=== PATIENT | female | born 1940 | race Caucasian/White ===

== ENCOUNTER 2021-10-28 20:08 | Inpatient (IN) | payer MEDICARE, OTHER ==
[~2021-10-28] VITALS: Ht 162.6 cm; Wt 72.3 kg
--- NOTE | 2021-10-28 20:20 | NUR ---
pt from group home brought in by [facility]. pt has c/o fever, pt's daughter is at bedside. Per pt's daughter pt is cognitivly impaired.
[2021-10-28] MEDS ORDERED: PIPERACILLIN SODIUM/TAZOBACTAM 3.375 G in IV DEXTROSE 5% 50 ML IV ONE (20:30)
[2021-10-28] MEDS ORDERED: VANCOMYCIN IV 1,000 MG in IV DEXTROSE 5% 250 ML IV ONE (20:30)
[2021-10-28] MEDS ORDERED: VANCOMYCIN IV 200 ML ONE (20:51)
[2021-10-28] MEDS ORDERED: PIPERACILLIN/TAZOBACTAM/D5W 50 ML IV ONE (20:51)
[2021-10-28] MEDS ORDERED: DULO20CA PO (20:53)
[2021-10-28] MEDS ORDERED: CALC3.8S BNOSTRILS (20:53)
[2021-10-28] MEDS ORDERED: SENN-175 PO (20:53)
[2021-10-28] MEDS ORDERED: DOCU50LI PO (20:53)
[2021-10-28] MEDS ORDERED: POTA-194 PO (20:53)
[2021-10-28] MEDS ORDERED: DONE5TAB34 PO (20:53)
[2021-10-28] MEDS ORDERED: MULT-594 PO (20:53)
[2021-10-28] MEDS ORDERED: DIVA125T2 PO (20:53)
[2021-10-28] MEDS ORDERED: FURO-151 PO (20:53)
[2021-10-28] MEDS ORDERED: DEXT1DRO6 EACHEYE (20:53)
[2021-10-28] MEDS ORDERED: LEVO100T10 PO (20:53)
[2021-10-28] MEDS ORDERED: CYAN-51 PO (20:53)
[2021-10-28] MEDS ORDERED: ACET-2154 PO (20:53)
[2021-10-28] MEDS ORDERED: SIMV10TA98 PO (20:53)
[2021-10-28 21:19] LABS: CARBON DIOXIDE 37 mmol/L (21-32); CHLORIDE 104 mmol/L (98-107); CREATININE 0.8 mg/dL (0.6-1.3); GLUCOSE 114 mg/dL (74-106); HEMATOCRIT 39.2 % (31.2-41.9); MEAN CORPUSCULAR HEMOGLOBIN 31.9 uug (24.7-32.8); MEAN CORPUSCULAR VOLUME 96.4 fL (75.5-95.3); PLATELET COUNT (AUTO) 289 K/uL (179-408); POTASSIUM 4.6 mmol/L (3.5-5.1); UREA NITROGEN, BLOOD 22 mg/dL (7-18)
--- NOTE | 2021-10-28 21:23 | NUR ---
IV 20 GUAGE WAS PLACED TO LEFT POSTERIOR FA AFTER MULTIPLE ATTEMPTS, IV PLACED BY DERICK ECHEVERRIA. DR. DELGADILLO AT BEDSIDE SPEAKING WITH FAMILY REGARDING NEED FOR MIDLINE/PICC LINE.
[2021-10-28 21:31] LABS: ALANINE AMINOTRANSFERASE 24 U/L (14-59); ALKALINE PHOSPHATASE 62 U/L (50-136); ASPARTATE AMINOTRANSFERASE 25 U/L (15-37); BILIRUBIN,DIRECT 0.1 mg/dL (0.0-0.2); BILIRUBIN,TOTAL 0.3 mg/dL (0.2-1.0); TOTAL PROTEIN, SERUM 7.6 g/dL (6.4-8.2)
[2021-10-28 22:03] LABS: ABG BASE EXCESS 7.7 mmol/L; ABG HCO3 35.2 mmol/L; ABG PCO2 63.2 mmHg (35.0-45.0); ABG PH 7.364 (7.350-7.450); ABG PO2 102.3 mmHg (75.0-100.0); ABG SITE RIGHT RADIAL; ABG TOTAL HEMOGLOBIN 13.5 G/dL (12.0-16.0); COHb 0.4 % (0.5-1.5); MetHb 0.3 % (0.0-1.5); VENT MODE Nasal Cannula
[2021-10-28] MEDS ORDERED: ACETAMINOPHEN 650 MG SUPP.RECT RC ONE ×2 (22:15→22:23)
--- NOTE | 2021-10-28 22:56 | NUR ---
report given to Rodney RN pt to go to room 308
--- NOTE | 2021-10-28 23:19 | NUR ---
spoke with Shiva in the lab he states covid is negative.
[2021-10-28 23:36] LABS: *BILIRUBIN,URIN NEGATIVE (NEGATIVE); *BLOOD, URINE 2+ (NEGATIVE); *COLOR,URINE YELLOW (YELLOW); *KETONES,URINE TRACE (NEGATIVE); *UROBILINOGEN,URINE 0.2 E.U./dl (NORMAL); LEUKOCYTE ESTERASE ,URINE TRACE (NEGATIVE); NITRITE, URINE POSITIVE (NEGATIVE); UGLUCOSE NEGATIVE (NEGATIVE)
[2021-10-28 23:46] LABS: *CLARITY,URINE HAZY (CLEAR)
--- NOTE | 2021-10-28 23:55 | NUR ---
pt [facility] to room [facility]eva Mirelesor at bedside to accept pt.
[2021-10-28 23:58] LABS: BACTERIA,URINE MANY /HPF (NONE SEEN); SQUAMOUS EPITHELIAL CELL,UR MODERATE /HPF (NONE SEEN); WBC,URINE 20-50 /HPF (0-3)
[2021-10-29 00:20] VITALS: BP 118/63
[2021-10-29] MEDS ORDERED: IV D5 1/2 NS 1000 ML 1,000 ML IV SCH (01:45)
[2021-10-29] MEDS ORDERED: ACETAMINOPHEN 325 MG TABLET PO PRN (01:45)
[2021-10-29] MEDS ORDERED: ALBUTEROL SULFATE 1.25 MG/3 ML NEBU NEB PRN (02:00)
[2021-10-29] MEDS ORDERED: ONDANSETRON 4 MG/2 ML VIAL IV PRN (02:00)
[2021-10-29] MEDS ORDERED: ACETAMINOPHEN 325 MG SUPP RC PRN (02:00)
--- NOTE | 2021-10-29 02:37 | NUR ---
Received an 81 yr old from ER with admitting diagnosis of pneumonia. Was brought in from [facility] of having a temperature of 102.1 rectally. Patient awake but non verbal. Patient open eyes when name being called, responsive to painful stimuli. Admitted medsurg/telemetry. Patient sinus tachy HR 103. Upon arrival to floor temp 100.2 HR 105 Resp 22 pulse ox 95% on 2L. BP 118/63 Hx of severe dementia, heart failure and HTN . Dr Bowen paged and made aware of patient's admission. Orders put in per MD. Patient has a left upper midline #20 flushed and patent. IV D51/2 NSS infusing @ 75cc/hr. Melgar catheter #18 Fr inserted per MD's order draining yellow urine. On Aspiration precautions. Patient also has a left FA int #20 intact. Patient kept NPO till speech eval done. No acute distress noted. Siderails up for safety. Will monitor patient.
[2021-10-29] MEDS ORDERED: PIPERACILLIN SODIUM/TAZOBACTAM 3.375 G in IV DEXTROSE 5% 50 ML IV SCH ×2 (04:00→10:00)
[2021-10-29] MEDS ORDERED: PIPERACILLIN SODIUM/TAZO 3.375 GM VIAL ONE (04:05)
[2021-10-29 04:59] VITALS: BP 138/64
[2021-10-29] MEDS: LEVOTHYROXINE SODIUM 100 MCG TABLET PO SCH (06:14)
--- NOTE | 2021-10-29 08:00 | NUR ---
RECEIVED PATIENT IN BED WITH EYES CLOSED AROUSED BU TOUGH BUT SHE IS NON VERBAL ON ROOM AIR WITH NO SOB ALL NEEDS ANTICIPATED AND SATISFIED TURNED AND REPOSITIONED Q2H REMAIN ON IVF ORDERED WITH NO S/S OF INFILTERATION ON SITE MADE COMFORTABLE WILL CONTINUE TELE IS SR WILL CONTINUE TO OBSERVE.
[2021-10-29] MEDS: CYANOCOBALAMIN 1,000 MCG TABLET PO SCH (09:00)
[2021-10-29] MEDS: DULOXETINE 30 MG CAPSULE.DR PO SCH (09:00)
[2021-10-29] MEDS: DIVALPROEX 125 MG TABLET.DR PO SCH (09:00)
[2021-10-29] MEDS ORDERED: POTASSIUM CHLORIDE 20 MEQ TAB.PRT.SR PO SCH (09:00)
[2021-10-29] MEDS: MULTIVIT, IRON, MIN NO. 8, FA TABLET PO SCH (09:00)
[2021-10-29] MEDS: SENNOSIDES 1 TABLET PO SCH ×2 (09:00→17:00)
--- NOTE | 2021-10-29 09:01 | NUR ---
VINEET CEDEÑO [facility] TH[facility] HERE AND SEEN PATIENT AWARE THAT WE ARE WAITING FOR THE SLT TO SEE PATIENT FOR SWALLOW EVAL AND AND SUCH UNABLE TO ADMINISTER MEDICATIONS ORDERED AND HE STATED OKAY TO WAIT FOR THE SLT.
[2021-10-29] MEDS: CALCITONIN,SALMON,SYNTHETIC 3.7 ML SPRAY.PUMP NS SCH (09:59)
[2021-10-29] MEDS ORDERED: ACETAMINOPHEN 325 MG TABLET-SA PATIENTS-PAIN ONLY PO PRN (10:30)
[2021-10-29 11:41] VITALS: BP 129/54
--- NOTE | 2021-10-29 13:00 | NUR ---
DR SEPULVEDA HERE SEEN AND SPOKE WITH THE PATIENTS DAUGHTER AT THE BEDSIDE WITH NO NEW ORDERS AT THIS TIME.
--- NOTE | 2021-10-29 14:00 | NUR ---
DR TILLEY HERE TO SEE PATIENT WITH NEW ORDERS AND NOTED
[2021-10-29] MEDS: CEFEPIME HCL 1 G in IV DEXTROSE 5% 50 ML IV SCH ×2 (15:35→21:39)
[2021-10-29 16:00] VITALS: BP 131/60
[2021-10-29] MEDS ORDERED: SENNOSIDES 1 TABLET PO SCH (17:00)
[2021-10-29] MEDS ORDERED: DOCUSATE SODIUM 100 MG/10 ML LIQUID UDC PO SCH (18:00)
[2021-10-29] MEDS ORDERED: SIMVASTATIN 10 MG TABLET PO SCH (18:00)
--- NOTE | 2021-10-29 18:15 | NUR ---
SPECIMEN OBTAINED FROM THE [facility] AND SENT TO THE LAB ORDERED. OTHER DAUGHTER IA AT THE BEDSIDE PATIENT REMAINS NPO ORDERED WITH ORAL CARE AWAITING FOR SWALLOW EVAL
[2021-10-29] MEDS: IV D5 1/2 NS 1000 ML 1,000 ML IV PRN (18:24)
[2021-10-29 18:29] LABS: *BILIRUBIN,URIN NEGATIVE (NEGATIVE); *BLOOD, URINE 3+ (NEGATIVE); *CLARITY,URINE SLIGHTLY CLOUDY (CLEAR); *COLOR,URINE YELLOW (YELLOW); *KETONES,URINE TRACE (NEGATIVE); *UROBILINOGEN,URINE 0.2 E.U./dl (NORMAL); LEUKOCYTE ESTERASE ,URINE 1+ (NEGATIVE); NITRITE, URINE NEGATIVE (NEGATIVE); PH,URINE 5.5 (5.0-8.0); UGLUCOSE NEGATIVE (NEGATIVE)
--- NOTE | 2021-10-29 19:01 | NUR ---
SENT A MESSAGE TO DR COCO REMY PER FAMILIES REQUEST.
--- NOTE | 2021-10-29 19:45 | NUR ---
Received patient lying in bed, asleep. With daughterCari at bedside. On telemonitor showing sinus tachycardia with bundle branch. On 2L O2 via NC. F/C patent and intact. Daughter, had requested for a sedative for her mom, dayshift nurse texted Dr. Abdul, await doctors instructions. Patient kept on NPO. IV access' patent and intact. IVF infusing well. Will collect MRSA swab. Safety precautions initiated. Will continue to monitor.
[2021-10-29 20:00] VITALS: BP 98/50
[2021-10-29 20:50] LABS: BACTERIA,URINE FEW /HPF (NONE SEEN); RBC,URINE 20-50 /HPF (0-3); SQUAMOUS EPITHELIAL CELL,UR FEW /HPF (NONE SEEN); URIC ACID CRYSTALS,URINE MANY /HPF (NONE SEEN)
[2021-10-29] MEDS: DOCUSATE SODIUM 100 MG/10 ML LIQUID UDC PO SCH (21:00)
[2021-10-29] MEDS: DONEPEZIL 5 MG TABLET PO SCH (21:00)
[2021-10-29] MEDS: SIMVASTATIN 10 MG TABLET PO SCH (21:00)
[2021-10-29] MEDS ORDERED: DONEPEZIL 5 MG TABLET PO SCH (21:00)
[2021-10-29] MEDS: VANCOMYCIN IV 1,000 MG in IV DEXTROSE 5% 250 ML IV SCH (22:34)
--- NOTE | 2021-10-29 23:50 | NUR ---
Patient was seen to be in distress, V/S taken and O2 saturation is showing 85%. Patient now receiving O2 via non-rebreather mask, saturating at 97%. Will continue to monitor.
[2021-10-30 00:15] VITALS: BP 108/39
--- NOTE | 2021-10-30 01:20 | NUR ---
MRSA swab done and sent to lab
[2021-10-30 04:00] VITALS: BP 116/50
--- NOTE | 2021-10-30 05:09 | NUR ---
Patient slept through the night. Aroused through light pain, more alert and responsive now. Sinus rhythm with bundle branch on telemonitor. On 1L O2, saturating 94%. Patient kept on NPO due to dysphagia. Await SLT evaluation. Patient is afebrile now. IV access patent and intact. F/C draining yellow -tran colored urine. Aspiration and seizure precautions maintained. Will continue to monitor.
[2021-10-30] MEDS: CEFEPIME HCL 1 G in IV DEXTROSE 5% 50 ML IV SCH ×3 (05:30→21:03)
[2021-10-30] MEDS: LEVOTHYROXINE SODIUM 100 MCG TABLET PO SCH (06:00)
[2021-10-30 07:09] LABS: HEMATOCRIT 34.1 % (31.2-41.9); MEAN CORPUSCULAR HEMOGLOBIN 32.4 uug (24.7-32.8); PLATELET COUNT (AUTO) 283 K/uL (179-408)
[2021-10-30 07:39] LABS: BILIRUBIN,TOTAL 0.8 mg/dL (0.2-1.0); CREATININE 0.7 mg/dL (0.6-1.3); MAGNESIUM 2.3 mg/dL (1.8-2.4); POTASSIUM 4.2 mmol/L (3.5-5.1); TOTAL PROTEIN, SERUM 6.8 g/dL (6.4-8.2)
[2021-10-30] MEDS: DIVALPROEX 125 MG TABLET.DR PO SCH (08:05)
[2021-10-30] MEDS: DULOXETINE 30 MG CAPSULE.DR PO SCH (08:05)
[2021-10-30] MEDS: POTASSIUM CHLORIDE 20 MEQ TAB.PRT.SR PO SCH (08:05)
[2021-10-30] MEDS: MULTIVIT, IRON, MIN NO. 8, FA TABLET PO SCH (08:05)
[2021-10-30] MEDS: SENNOSIDES 1 TABLET PO SCH ×2 (08:05→16:39)
[2021-10-30] MEDS: CALCITONIN,SALMON,SYNTHETIC 3.7 ML SPRAY.PUMP NS SCH (08:05)
[2021-10-30] MEDS: CYANOCOBALAMIN 1,000 MCG TABLET PO SCH (08:06)
--- NOTE | 2021-10-30 08:30 | NUR ---
RECEIVED PATIENT IN BED AWAKE ALERT MORE AWAKE TODAY BUT REMAINS CONFUSED AND DISORIENTED ALL NEEDS ANTICIPATED AND SATISFIED WITH MAX ASSIST FOR ALL ADL TURNED AND REPOSITIONED Q2H ON O2 AT 2L/M WITH NO S/S OF SHORTNESS OF BREATH AT THIS TIME MIDLINE REMAIN INTACT WITH IVF IN PROGRESS ORDERED.WITH NO S/S OF INFILTERATION AT THIS TIME ECHAVARRIA CATH INTACT WITH NO S/S OF HEMATURIA CONTINUE ON IV ATB WITH NO ADVERSE OR ALLERGIC REACTIONS AT THIS TIME WILL CONTINUE TO OBSERVE.
[2021-10-30] MEDS ORDERED: LEVOTHYROXINE SODIUM 100 MCG TABLET PO SCH (09:00)
[2021-10-30] MEDS ORDERED: DIVALPROEX 125 MG TABLET.DR PO SCH (09:00)
[2021-10-30] MEDS ORDERED: CYANOCOBALAMIN 1,000 MCG TABLET PO SCH (09:00)
[2021-10-30] MEDS ORDERED: CALCITONIN,SALMON,SYNTHETIC 3.7 ML SPRAY.PUMP NS SCH (09:00)
[2021-10-30] MEDS ORDERED: DULOXETINE 20 MG CAPSULE.DR PO SCH (09:00)
[2021-10-30] MEDS ORDERED: FUROSEMIDE 40 MG TABLET PO SCH (09:00)
--- NOTE | 2021-10-30 10:46 | NUR ---
DR CORDON HERE TO VISIT PATIENT WITH NO NEW ORDERS AT THIS TIME.
[2021-10-30 12:00] VITALS: BP 106/51
--- NOTE | 2021-10-30 14:52 | NUR ---
DR TILLEY INFECTIOUS DISEASE HERE AND SEEN PATIENT SPOKE WITH PATIENTS DAUGHTER AT LENGTH WITH NO NEW ORDERS AT THIS TIME PATIENT REMAIN NPO ORDERED AWAITING FOR SWALLOW EVALUATION.
[2021-10-30 16:00] VITALS: BP 127/48
--- NOTE | 2021-10-30 18:00 | NUR ---
TURNED AND REPOSITIONED ORAL CARE DONE AND TOLERATED WELL REMAIN NOTHING BY MOUTH ORDERED IVF IN PROGRESS WITH NO S/S OF INFILTERATION ON SITE MADE COMFORTABLE WILL CONTINUE TO OBSERVE.
[2021-10-30] MEDS: IV D5 1/2 NS 1000 ML 1,000 ML IV PRN (18:16)
[2021-10-30 20:00] VITALS: BP 128/60
[2021-10-30] MEDS: MUPIROCIN 2% OINT 22 GM TUBE NS SCH (20:39)
[2021-10-30] MEDS: DOCUSATE SODIUM 100 MG/10 ML LIQUID UDC PO SCH (20:39)
[2021-10-30] MEDS: DONEPEZIL 5 MG TABLET PO SCH (20:39)
[2021-10-30] MEDS: SIMVASTATIN 10 MG TABLET PO SCH (20:39)
--- NOTE | 2021-10-30 21:18 | NUR ---
PT MOSTLY A MOUTH BREATHER, SLIGHTLY DECREASED, 21:15 -CALLED BY NURSING WITH DE SAT 0N 1L/M NC SAT 86-87%, PT PLACED ON 8L/M VIA SIMPLE MASK, SAT 99%, WILL CHECK LATER, NURSE INFORMED .Trudy KUMAR Addendum: 10/30/21 at 2120 by CINDY KUAMR RT Amended: Links added.
[2021-10-30] MEDS: VANCOMYCIN IV 1,000 MG in IV DEXTROSE 5% 250 ML IV SCH (22:23)
[2021-10-31 00:56] VITALS: BP 114/59
--- NOTE | 2021-10-31 01:04 | NUR ---
Received patient lying in bed, asleep. On telemonitor showing sinus tachycardia with bundle branch. On 1L O2 via NC. F/C patent and intact. Patient kept on NPO and await swallow evaluation. IV access' patent and intact. IVF infusing well. Aspiration and safety precautions initiated. Will continue to monitor.
[2021-10-31 04:00] VITALS: BP 117/53
[2021-10-31] MEDS: CEFEPIME HCL 1 G in IV DEXTROSE 5% 50 ML IV SCH ×3 (05:11→22:26)
--- NOTE | 2021-10-31 05:40 | NUR ---
Patient slept through the night. Patient is more alert, able to answer close ended questions. Derrick,patient's son visited at 20:30 yesterday, patient desaturated down to 85%, RT notified. Patient was placed on a non-rebreather mask and was saturating well, titrated down to 2L O2. Patient shows no signs of SOB. At 00:00, rectal temperature was noted to be at 99.4. Cooling measures done. S.R with bundle branch on tele monitor. IV access' patent and intact. F/C draining well. Safety precautions maintained. Will endorse to day shift.
[2021-10-31 06:47] LABS: HEMATOCRIT 37.1 % (31.2-41.9); MEAN CORPUSCULAR HEMOGLOBIN 32.2 uug (24.7-32.8); MEAN CORPUSCULAR VOLUME 97.9 fL (75.5-95.3); PLATELET COUNT (AUTO) 258 K/uL (179-408)
[2021-10-31] MEDS: LEVOTHYROXINE SODIUM 100 MCG TABLET PO SCH (07:00)
[2021-10-31 07:07] LABS: CARBON DIOXIDE 32 mmol/L (21-32); CHLORIDE 102 mmol/L (98-107); CREATININE 0.4 mg/dL (0.6-1.3); GLUCOSE 108 mg/dL (74-106); MAGNESIUM 2.4 mg/dL (1.8-2.4); PHOSPHOROUS 3.9 mg/dL (2.5-4.9); POTASSIUM 4.1 mmol/L (3.5-5.1); UREA NITROGEN, BLOOD 16 mg/dL (7-18)
[2021-10-31] MEDS: CALCITONIN,SALMON,SYNTHETIC 3.7 ML SPRAY.PUMP NS SCH (08:43)
[2021-10-31] MEDS: POTASSIUM CHLORIDE 20 MEQ TAB.PRT.SR PO SCH (08:43)
[2021-10-31] MEDS: DIVALPROEX 125 MG TABLET.DR PO SCH (08:43)
[2021-10-31] MEDS: DULOXETINE 30 MG CAPSULE.DR PO SCH (08:43)
[2021-10-31] MEDS: SENNOSIDES 1 TABLET PO SCH ×2 (08:44→16:45)
[2021-10-31] MEDS: MULTIVIT, IRON, MIN NO. 8, FA TABLET PO SCH (08:44)
[2021-10-31] MEDS: CYANOCOBALAMIN 1,000 MCG TABLET PO SCH (09:00)
[2021-10-31] MEDS: MUPIROCIN 2% OINT 22 GM TUBE NS SCH (09:16)
--- NOTE | 2021-10-31 10:00 | NUR ---
PATIENT SEEN AND EXAMINED BY SLT WITH ORDER TO START PATIENT ON PUREED DIET WITH NECTAR THICK LIQUIDS AND NOTED HER DAUGHTER IS AT THE BEDSIDE IVF IN PROGRESS ORDERED SHE IS ON O2 WITH NO SOB AT THIS TIME WILL CONTINUE TO OBSERVE.
[2021-10-31 11:35] VITALS: BP 126/42
--- NOTE | 2021-10-31 14:00 | NUR ---
ID DR ZAZUETA HERE AND SEEN PATIENT WITH NO NEW ORDERS AT THIS TIME REMAIN ON ATB ORDERED WITH NO ADVERSE OR ALLERGIC REACTIONS AT THIS TIME.
[2021-10-31 15:39] VITALS: BP 119/48
--- NOTE | 2021-10-31 18:00 | NUR ---
PATIENT IS A FEEDER TOLERATED DIET ORDERED WITH NO ASPIRATION NO COUGHS AT THIS TIME WILL CONTINUE TO OBSERVE AFEBRILE.
[2021-10-31] MEDS: IV D5 1/2 NS 1000 ML 1,000 ML IV PRN (18:04)
[2021-10-31 20:00] VITALS: BP 121/57
[2021-10-31] MEDS: DONEPEZIL 5 MG TABLET PO SCH (22:34)
[2021-10-31] MEDS: SIMVASTATIN 10 MG TABLET PO SCH (22:34)
[2021-10-31] MEDS: DOCUSATE SODIUM 100 MG/10 ML LIQUID UDC PO SCH (22:34)
[2021-10-31] MEDS: VANCOMYCIN IV 1,000 MG in IV DEXTROSE 5% 250 ML IV SCH (23:13)
[2021-11-01 04:00] VITALS: BP 117/59
[2021-11-01] MEDS: CEFEPIME HCL 1 G in IV DEXTROSE 5% 50 ML IV SCH (05:46)
--- NOTE | 2021-11-01 06:00 | NUR ---
Slept well last night. Tolerated medications crushed with pudding, but coughs for about a minute after taking. aspiration precautions maintained. answers simple questions. No distress, noted.
[2021-11-01] MEDS: LEVOTHYROXINE SODIUM 100 MCG TABLET PO SCH (06:21)
--- NOTE | 2021-11-01 06:37 | NUR ---
unable to perform daily weight, due to bed scale being zeroed out
--- NOTE | 2021-11-01 07:15 | NUR ---
RECEIVED PATIENT IN BED AWAKE ALERT TO SELF ABLE TO RESPOND TO A NO OR YES RESPONSES BUT SHE IS CONFUSED AND DISORIENTED ALL NEEDS ANTICIPATED AND SATISFIED.MAX ASSIST FOR ALL ADL TURNED AND REPOSITIONED FOR COMFORT.REMAIN ON IVF ORDERED WITH NO S/S OF INFILTERATION ON SITE HAS A RIGHT UPPER ARM MIDLINE SHA HAS A ECHAVARRIA CATH WITH NO HEMATURIA CONTINUE ON ATB ORDERED WITH NO ADVERSE OR ALLERGIC REACTIONS AT THIS TIME MADE COMFORTABLE WILL CONTINUE TO OBSERVE.
[2021-11-01] MEDS ORDERED: VANCOMYCIN IV 1,250 MG in IV DEXTROSE 5% 250 ML IV SCH (09:00)
[2021-11-01] MEDS: CYANOCOBALAMIN 1,000 MCG TABLET PO SCH (09:22)
[2021-11-01] MEDS: DIVALPROEX 125 MG TABLET.DR PO SCH (09:22)
[2021-11-01] MEDS: POTASSIUM CHLORIDE 20 MEQ TAB.PRT.SR PO SCH (09:22)
[2021-11-01] MEDS: DULOXETINE 30 MG CAPSULE.DR PO SCH (09:22)
[2021-11-01] MEDS: SENNOSIDES 1 TABLET PO SCH ×2 (09:22→16:50)
[2021-11-01] MEDS: MULTIVIT, IRON, MIN NO. 8, FA TABLET PO SCH (09:22)
[2021-11-01] MEDS: CALCITONIN,SALMON,SYNTHETIC 3.7 ML SPRAY.PUMP NS SCH (09:24)
--- NOTE | 2021-11-01 10:33 | NUR ---
DR CHINCHILLA HERE TO SEE PATIENT WITH NEW ORDERS AND NOTED.
[2021-11-01 11:57] VITALS: BP 124/53
[2021-11-01 16:00] VITALS: BP 113/47
[2021-11-01] MEDS: IV D5 1/2 NS 1000 ML 1,000 ML IV PRN (18:52)
[2021-11-01 20:00] VITALS: BP 123/50
--- NOTE | 2021-11-01 20:00 | NUR ---
Received patient lying in bed. Awake, more alert, oriented to self only. Reoriented patient to time and place.On 2L O2 via NC, saturating 98%. F/C patent and intact. Patient on Pureed diet, IV access' patent and intact. D5 1/2 NS running at 50cc/hr. Aspiration and seizure precautions initiated. Will continue to monitor.
[2021-11-01] MEDS: SIMVASTATIN 10 MG TABLET PO SCH (20:11)
[2021-11-01] MEDS: DONEPEZIL 5 MG TABLET PO SCH (20:11)
[2021-11-01] MEDS: DOCUSATE SODIUM 100 MG/10 ML LIQUID UDC PO SCH (20:12)
[2021-11-02 06:03] LABS: HEMATOCRIT 33.2 % (31.2-41.9); MEAN CORPUSCULAR HEMOGLOBIN 32.2 uug (24.7-32.8); MEAN CORPUSCULAR VOLUME 97.2 fL (75.5-95.3); PLATELET COUNT (AUTO) 292 K/uL (179-408)
[2021-11-02] MEDS: LEVOTHYROXINE SODIUM 100 MCG TABLET PO SCH (06:22)
[2021-11-02 06:35] LABS: CARBON DIOXIDE 37 mmol/L (21-32); CHLORIDE 101 mmol/L (98-107); CREATININE 0.5 mg/dL (0.6-1.3); GLUCOSE 126 mg/dL (74-106); MAGNESIUM 2.2 mg/dL (1.8-2.4); PHOSPHOROUS 2.3 mg/dL (2.5-4.9); POTASSIUM 3.9 mmol/L (3.5-5.1); UREA NITROGEN, BLOOD 16 mg/dL (7-18)
--- NOTE | 2021-11-02 06:51 | NUR ---
Patient slept well last night. Pt compliant with medication regimen, crushed pills mixed with apple sauce. 4am temperature was slightly elevated at 99.1, cooling measures initiated. No acute distress noted. IV access patent and intact, infusing d 5 1/2 NS at 50 cc/hr. Safety, aspiration and seizure precautions maintained. Will endorse to day shift.
[2021-11-02 09:02] LABS: ABG BASE EXCESS 9.3 mmol/L; ABG HCO3 36.5 mmol/L; ABG PCO2 63.5 mmHg (35.0-45.0); ABG PH 7.377 (7.350-7.450); ABG PO2 90.4 mmHg (75.0-100.0); ABG SITE RIGHT RADIAL; ABG TOTAL HEMOGLOBIN 11.6 G/dL (12.0-16.0); COHb 0.1 % (0.5-1.5); MetHb 0.2 % (0.0-1.5); O2Hb 96.7 % (94.0-97.0); VENT MODE Nasal Cannula
[2021-11-02] MEDS ORDERED: POTASSIUM CHLORIDE 20 MEQ TAB.PRT.SR PO ONE (09:45)
[2021-11-02] MEDS: POTASSIUM CHLORIDE 20 MEQ TAB.PRT.SR PO SCH (10:15)
[2021-11-02] MEDS: SENNOSIDES 1 TABLET PO SCH ×2 (10:15→16:35)
[2021-11-02] MEDS: MULTIVIT, IRON, MIN NO. 8, FA TABLET PO SCH (10:15)
[2021-11-02] MEDS: CYANOCOBALAMIN 1,000 MCG TABLET PO SCH (10:18)
[2021-11-02] MEDS: DIVALPROEX 125 MG TABLET.DR PO SCH (10:19)
[2021-11-02] MEDS: DULOXETINE 30 MG CAPSULE.DR PO SCH (10:19)
[2021-11-02] MEDS: CALCITONIN,SALMON,SYNTHETIC 3.7 ML SPRAY.PUMP NS SCH (11:25)
--- NOTE | 2021-11-02 11:30 | NUR ---
Pt has a critical level of CO2 of 63.5, oxygen was titrated to 1 L NC. Will titrate off oxygen during shift as tolerated. MD Rosenthal aware. Family at bedside, comfort measures provided. Will continue to monitor pt.
[2021-11-02 12:15] VITALS: BP 103/55
--- NOTE | 2021-11-02 14:05 | NUR ---
Titrated pt off oxygen. Pt is saturating 91% on room air. Will continue to monitor.
[2021-11-02] MEDS ORDERED: NEUTRA PHOS PACKET PO ONE (15:15)
[2021-11-02 16:00] VITALS: BP 142/72
[2021-11-02] MEDS: IV D5 1/2 NS 1000 ML 1,000 ML IV PRN (16:51)
--- NOTE | 2021-11-02 19:01 | NUR ---
Pt was seen by Dr. Bonner, cleared for discharge in the am. Pending CM placement and transportation.
[2021-11-02 20:00] VITALS: BP 141/81
--- NOTE | 2021-11-02 20:15 | NUR ---
Pt back on 1L NC saturating at 92%. No signs of acute distress.
[2021-11-02] MEDS: DONEPEZIL 5 MG TABLET PO SCH (20:36)
[2021-11-02] MEDS: SIMVASTATIN 10 MG TABLET PO SCH (20:36)
[2021-11-02] MEDS: DOCUSATE SODIUM 100 MG/10 ML LIQUID UDC PO SCH (20:36)
--- NOTE | 2021-11-02 22:30 | NUR ---
PT'S DAUGHTER IRINA CALLED ASKING FOR DISCHARGE UPDATE. INFORMED DAUGHTER D/C ORDER WAS JUST PLACED, WILL NEED CASE MANAGEMENT TO CONFIRM. PT'S DAUGHTER WANTS AN UPDATE FROM MD. WILL INFORM MD.
[2021-11-02 23:00] VITALS: BP 131/61
--- NOTE | 2021-11-02 23:05 | NUR ---
Pt temp was elevated, 100.6. Cooling measures initiated with ice packs. Rechecked, 100.2. Notified MASONRY TEACHER [facility]. CBC and Procalcitonin for am lab draw ordered per MASONRY TEACHER. Pt temp 98.9 No signs of acute distress.
[2021-11-03 04:00] VITALS: BP 148/76
[2021-11-03] MEDS: LEVOTHYROXINE SODIUM 100 MCG TABLET PO SCH (06:16)
--- NOTE | 2021-11-03 06:43 | NUR ---
Slept throughout the night. On 1 L NC saturating at 95%. Titrated to 0.5L NC. HOB elevated. Aspiration precautions maintained. No signs of acute distress noted. Oral care done Q2H. Reposition Q2H. F/C in place, tran clear urine draining. DAVIDA midline intact and patent. Medications crushed and given. Afebrile, 97.8 temp. Call lights within reach. Safety measures maintained. Will endorse to am shift.
[2021-11-03 06:48] LABS: HEMATOCRIT 36.3 % (31.2-41.9); MEAN CORPUSCULAR HEMOGLOBIN 31.7 uug (24.7-32.8); MEAN CORPUSCULAR VOLUME 98.2 fL (75.5-95.3); PLATELET COUNT (AUTO) 343 K/uL (179-408)
[2021-11-03] MEDS: DIVALPROEX 125 MG TABLET.DR PO SCH (08:05)
[2021-11-03] MEDS: POTASSIUM CHLORIDE 20 MEQ TAB.PRT.SR PO SCH (08:05)
[2021-11-03] MEDS: DULOXETINE 30 MG CAPSULE.DR PO SCH (08:05)
[2021-11-03] MEDS: CYANOCOBALAMIN 1,000 MCG TABLET PO SCH (08:05)
[2021-11-03] MEDS: MULTIVIT, IRON, MIN NO. 8, FA TABLET PO SCH (08:05)
[2021-11-03] MEDS: SENNOSIDES 1 TABLET PO SCH ×2 (08:05→17:00)
[2021-11-03] MEDS: CALCITONIN,SALMON,SYNTHETIC 3.7 ML SPRAY.PUMP NS SCH (08:10)
[2021-11-03 11:30] LABS: *BILIRUBIN,URIN NEGATIVE (NEGATIVE); *BLOOD, URINE 1+ (NEGATIVE); *CLARITY,URINE SLIGHTLY CLOUDY (CLEAR); *COLOR,URINE YELLOW (YELLOW); *KETONES,URINE NEGATIVE (NEGATIVE); *UROBILINOGEN,URINE 0.2 E.U./dl (NORMAL); LEUKOCYTE ESTERASE ,URINE NEGATIVE (NEGATIVE); NITRITE, URINE NEGATIVE (NEGATIVE); PH,URINE 8.5 (5.0-8.0); UGLUCOSE NEGATIVE (NEGATIVE)
[2021-11-03 12:00] VITALS: BP 145/68
[2021-11-03 13:31] LABS: BACTERIA,URINE FEW /HPF (NONE SEEN); RBC,URINE 0-3 /HPF (0-3); SQUAMOUS EPITHELIAL CELL,UR FEW /HPF (NONE SEEN); WBC,URINE 0-3 /HPF (0-3)
[2021-11-03 13:37] LABS: YEAST,URINE MODERATE /HPF (NONE SEEN)
[2021-11-03 16:00] VITALS: BP 126/59
--- NOTE | 2021-11-03 17:38 | NUR ---
Pt temp was elevated, 101.6 and her hr is 114 Cooling measures initiated with ice packs No signs of acute distress. made aware
[2021-11-03 17:42] VITALS: BP 126/59
[2021-11-03] MEDS: DONEPEZIL 5 MG TABLET PO SCH (20:58)
[2021-11-03] MEDS: DOCUSATE SODIUM 100 MG/10 ML LIQUID UDC PO SCH (20:58)
[2021-11-03] MEDS: SIMVASTATIN 10 MG TABLET PO SCH (20:58)
[2021-11-03 21:00] VITALS: BP 115/60
[2021-11-03] MEDS ORDERED: LORAZEPAM 2 MG/1 ML VIAL IV ONE (21:30)
[2021-11-04 04:00] VITALS: BP 120/63
--- NOTE | 2021-11-04 05:41 | NUR ---
Patient slept well at night. In no acute distress. Afebrile. Able to take due meds. Midline on right upper arm intact and patent. Melgar catheter intact and draining via gravity.Needs assessed and attended to. Safety measure maintained and call light within reached.
[2021-11-04] MEDS: LEVOTHYROXINE SODIUM 100 MCG TABLET PO SCH (06:06)
[2021-11-04 06:33] LABS: HEMATOCRIT 33.8 % (31.2-41.9); MEAN CORPUSCULAR HEMOGLOBIN 32.6 uug (24.7-32.8); MEAN CORPUSCULAR VOLUME 97.1 fL (75.5-95.3); PLATELET COUNT (AUTO) 387 K/uL (179-408)
[2021-11-04 06:48] LABS: CARBON DIOXIDE 35 mmol/L (21-32); CHLORIDE 100 mmol/L (98-107); CREATININE 0.5 mg/dL (0.6-1.3); GLUCOSE 112 mg/dL (74-106); MAGNESIUM 2.3 mg/dL (1.8-2.4); PHOSPHOROUS 3.5 mg/dL (2.5-4.9); POTASSIUM 4.9 mmol/L (3.5-5.1); UREA NITROGEN, BLOOD 16 mg/dL (7-18)
[2021-11-04] MEDS: POTASSIUM CHLORIDE 20 MEQ TAB.PRT.SR PO SCH (08:13)
[2021-11-04] MEDS: SENNOSIDES 1 TABLET PO SCH ×2 (08:14→16:10)
[2021-11-04] MEDS: CALCITONIN,SALMON,SYNTHETIC 3.7 ML SPRAY.PUMP NS SCH (08:14)
[2021-11-04] MEDS: CYANOCOBALAMIN 1,000 MCG TABLET PO SCH (08:14)
[2021-11-04] MEDS: DULOXETINE 30 MG CAPSULE.DR PO SCH (08:14)
[2021-11-04] MEDS: DIVALPROEX 125 MG TABLET.DR PO SCH (08:14)
[2021-11-04] MEDS: MULTIVIT, IRON, MIN NO. 8, FA TABLET PO SCH (08:14)
[2021-11-04] MEDS: CEFTRIAXONE 1 G in IV DEXTROSE 5% 50 ML IV SCH (10:04)
[2021-11-04] MEDS: ACETAMINOPHEN 325 MG TABLET PO PRN ×2 (11:09→20:24)
[2021-11-04] MEDS: ACETAzolamide SODIUM 500 MG VIAL IV SCH (11:17)
--- NOTE | 2021-11-04 11:26 | NUR ---
pt hr is 124 per md orders transfer the pt to tele
[2021-11-04 11:47] VITALS: BP 131/53
[2021-11-04 16:10] VITALS: BP 137/60
[2021-11-04 20:00] VITALS: BP 116/43
[2021-11-04] MEDS: DONEPEZIL 5 MG TABLET PO SCH (20:23)
[2021-11-04] MEDS: SIMVASTATIN 10 MG TABLET PO SCH (20:23)
[2021-11-04] MEDS: DOCUSATE SODIUM 100 MG/10 ML LIQUID UDC PO SCH (20:24)
[2021-11-05] VITALS: BP 114/56
[2021-11-05 04:00] VITALS: BP 121/56
[2021-11-05] MEDS: LEVOTHYROXINE SODIUM 100 MCG TABLET PO SCH (06:02)
[2021-11-05 06:49] LABS: HEMATOCRIT 36.1 % (31.2-41.9); MEAN CORPUSCULAR HEMOGLOBIN 31.7 uug (24.7-32.8); MEAN CORPUSCULAR VOLUME 98.1 fL (75.5-95.3); PLATELET COUNT (AUTO) 406 K/uL (179-408)
--- NOTE | 2021-11-05 06:58 | NUR ---
Slept throughout the night. No distress noted. Titrated to 0.5L, satting 93%. IV site intact. Melgar draining to gravity. Safety maintained. Will endorse to day shift.
[2021-11-05 07:04] LABS: CARBON DIOXIDE 30 mmol/L (21-32); CHLORIDE 101 mmol/L (98-107); CREATININE 0.5 mg/dL (0.6-1.3); GLUCOSE 107 mg/dL (74-106); MAGNESIUM 2.4 mg/dL (1.8-2.4); PHOSPHOROUS 4.5 mg/dL (2.5-4.9); POTASSIUM 4.3 mmol/L (3.5-5.1); UREA NITROGEN, BLOOD 19 mg/dL (7-18)
[2021-11-05] MEDS: DULOXETINE 30 MG CAPSULE.DR PO SCH (08:06)
[2021-11-05] MEDS: DIVALPROEX 125 MG TABLET.DR PO SCH (08:06)
[2021-11-05] MEDS: CYANOCOBALAMIN 1,000 MCG TABLET PO SCH (08:06)
[2021-11-05] MEDS: MULTIVIT, IRON, MIN NO. 8, FA TABLET PO SCH (08:06)
[2021-11-05] MEDS: SENNOSIDES 1 TABLET PO SCH ×2 (08:06→16:41)
[2021-11-05] MEDS: POTASSIUM CHLORIDE 20 MEQ TAB.PRT.SR PO SCH (08:06)
[2021-11-05] MEDS: CALCITONIN,SALMON,SYNTHETIC 3.7 ML SPRAY.PUMP NS SCH (08:32)
[2021-11-05 08:57] LABS: ABG BASE EXCESS 2.3 mmol/L; ABG HCO3 28.3 mmol/L; ABG PCO2 49.6 mmHg (35.0-45.0); ABG PH 7.374 (7.350-7.450); ABG PO2 65.6 mmHg (75.0-100.0); ABG SITE RIGHT RADIAL; COHb 0.8 % (0.5-1.5); MetHb 0.3 % (0.0-1.5); O2Hb 92.4 % (94.0-97.0); VENT MODE Nasal Cannula
[2021-11-05] MEDS: CEFTRIAXONE 1 G in IV DEXTROSE 5% 50 ML IV SCH (10:05)
[2021-11-05 11:09] VITALS: BP 116/68
[2021-11-05] MEDS: ACETAzolamide SODIUM 500 MG VIAL IV SCH (12:04)
[2021-11-05 15:07] VITALS: BP 110/43
[2021-11-05 20:00] VITALS: BP 112/52
[2021-11-05] MEDS: SIMVASTATIN 10 MG TABLET PO SCH (21:15)
[2021-11-05] MEDS: DONEPEZIL 5 MG TABLET PO SCH (21:15)
[2021-11-05] MEDS: DOCUSATE SODIUM 100 MG/10 ML LIQUID UDC PO SCH (21:15)
--- NOTE | 2021-11-05 23:20 | NUR ---
Called Dr Ruvalcaba to report HR, advised to call department editor video presentation operator, patient was noted with 120-125's HR, sinus tachy on monitor. Per Dr galloway, continue to monitor patient. Will continue to monitor.
[2021-11-06] VITALS: BP 125/59
[2021-11-06] MEDS: ACETAMINOPHEN 325 MG TABLET PO PRN (00:50)
--- NOTE | 2021-11-06 01:02 | NUR ---
patient was noted with T100.8, Tylenol prn given as ordered, kept comfortable, cooling measures applied. no distress identified. will continue to monitor.
[2021-11-06 04:00] VITALS: BP 111/55
[2021-11-06] MEDS: LEVOTHYROXINE SODIUM 100 MCG TABLET PO SCH (06:09)
--- NOTE | 2021-11-06 06:46 | NUR ---
PATIENT REMAINED STABLE DURING THE SHIFT. SUCTIONED NEEDED. TURNED AND REPOSITION FOR PERFUSION. ALL DUE MEDS GIVEN ORDERED. NO CONCERNS IDENTIFIED DURING THE SHIFT. WILL ENDORSE TO THE NEXT SHIFT FOR CONTINUITY OF CARE.
[2021-11-06 06:54] LABS: HEMATOCRIT 33.8 % (31.2-41.9); MEAN CORPUSCULAR HEMOGLOBIN 31.7 uug (24.7-32.8); MEAN CORPUSCULAR VOLUME 97.3 fL (75.5-95.3); PLATELET COUNT (AUTO) 449 K/uL (179-408)
[2021-11-06 07:21] LABS: CREATININE 0.6 mg/dL (0.6-1.3); MAGNESIUM 2.4 mg/dL (1.8-2.4); PHOSPHOROUS 3.8 mg/dL (2.5-4.9); POTASSIUM 4.2 mmol/L (3.5-5.1)
[2021-11-06] MEDS: MULTIVIT, IRON, MIN NO. 8, FA TABLET PO SCH (08:04)
[2021-11-06] MEDS: DULOXETINE 30 MG CAPSULE.DR PO SCH (08:04)
[2021-11-06] MEDS: CYANOCOBALAMIN 1,000 MCG TABLET PO SCH (08:04)
[2021-11-06] MEDS: SENNOSIDES 1 TABLET PO SCH ×2 (08:04→16:49)
[2021-11-06] MEDS: POTASSIUM CHLORIDE 20 MEQ TAB.PRT.SR PO SCH (08:04)
[2021-11-06] MEDS: DIVALPROEX 125 MG TABLET.DR PO SCH (08:04)
[2021-11-06] MEDS: CALCITONIN,SALMON,SYNTHETIC 3.7 ML SPRAY.PUMP NS SCH (08:44)
[2021-11-06] MEDS: CEFTRIAXONE 1 G in IV DEXTROSE 5% 50 ML IV SCH (10:04)
[2021-11-06] MEDS: ACETAzolamide SODIUM 500 MG VIAL IV SCH (11:30)
[2021-11-06 12:00] VITALS: BP 134/67
[2021-11-06 16:00] VITALS: BP 123/58
--- NOTE | 2021-11-06 19:40 | NUR ---
Received patient in bed, easily awaken by name and light touch. Patient is alert. Only responsive to close ended questions. Oriented patient to time and place. IV access on DAVIDA ML, heplock, patent and intact. Sinus tachycardia on telemonitor, with HR of 108bpm. Temperature is slightly elevated, 99.6, cooling measures initiated. On 0.5L O2 saturating at 93%. Audible gurgling noted, notified RT, oral suctioning done. With gonzáles catheter, draining clear yellow urine. Safety, aspiration and seizure precautions initiated. Will continue to monitor.
[2021-11-06 20:06] VITALS: BP 122/56
[2021-11-06] MEDS: SIMVASTATIN 10 MG TABLET PO SCH (20:15)
[2021-11-06] MEDS: DONEPEZIL 5 MG TABLET PO SCH (20:15)
[2021-11-06] MEDS: DOCUSATE SODIUM 100 MG/10 ML LIQUID UDC PO SCH (20:17)
[2021-11-07 00:03] VITALS: BP 123/57
[2021-11-07 04:09] VITALS: BP 140/56
--- NOTE | 2021-11-07 05:17 | NUR ---
Patient slept through the night. No acute distress noted. Still on 0.5L O2, tolerating well. Sinus rhythm with bundle branch on telemonitor, HR of 95bpm. Patient is complaint with medication regimen. Kept on thickened liquids. Oral care done frequently. With F/C draining clear yellow urine. Safety, aspiration and seizure precautions were maintained.
--- NOTE | 2021-11-07 05:23 | NUR ---
Patient's temperature down to 97.5, cooling measures done overnight.
[2021-11-07] MEDS: LEVOTHYROXINE SODIUM 100 MCG TABLET PO SCH (06:13)
--- NOTE | 2021-11-07 06:45 | NUR ---
Patient's Melgar catheter is noted to be leaking, will attempt to insert new FC
[2021-11-07 07:11] LABS: MEAN CORPUSCULAR VOLUME 97.7 fL (75.5-95.3); PLATELET COUNT (AUTO) 416 K/uL (179-408)
--- NOTE | 2021-11-07 07:11 | NUR ---
Reinsert new gonzáles catheter, gauge 16, 20cc of balloon inflated. draining clear yellow urine. Advised day shift accordingly.
[2021-11-07 07:30] LABS: CARBON DIOXIDE 27 mmol/L (21-32); CHLORIDE 103 mmol/L (98-107); CREATININE 0.5 mg/dL (0.6-1.3); GLUCOSE 99 mg/dL (74-106); MAGNESIUM 2.4 mg/dL (1.8-2.4); PHOSPHOROUS 3.3 mg/dL (2.5-4.9); UREA NITROGEN, BLOOD 19 mg/dL (7-18)
[2021-11-07] MEDS: SENNOSIDES 1 TABLET PO SCH ×2 (08:22→16:14)
[2021-11-07] MEDS: CYANOCOBALAMIN 1,000 MCG TABLET PO SCH (08:22)
[2021-11-07] MEDS: DIVALPROEX 125 MG TABLET.DR PO SCH (08:22)
[2021-11-07] MEDS: MULTIVIT, IRON, MIN NO. 8, FA TABLET PO SCH (08:22)
[2021-11-07] MEDS: DULOXETINE 30 MG CAPSULE.DR PO SCH (08:22)
[2021-11-07] MEDS: POTASSIUM CHLORIDE 20 MEQ TAB.PRT.SR PO SCH (08:22)
[2021-11-07] MEDS: CALCITONIN,SALMON,SYNTHETIC 3.7 ML SPRAY.PUMP NS SCH (09:10)
[2021-11-07] MEDS: CEFTRIAXONE 1 G in IV DEXTROSE 5% 50 ML IV SCH (09:43)
[2021-11-07] MEDS: ACETAzolamide SODIUM 500 MG VIAL IV SCH (11:27)
[2021-11-07 12:28] VITALS: BP 110/56
[2021-11-07 16:28] VITALS: BP 118/61
[2021-11-07 20:00] VITALS: BP 116/63
[2021-11-07] MEDS: SIMVASTATIN 10 MG TABLET PO SCH (21:31)
[2021-11-07] MEDS: DONEPEZIL 5 MG TABLET PO SCH (21:31)
[2021-11-07] MEDS: DOCUSATE SODIUM 100 MG/10 ML LIQUID UDC PO SCH (21:31)
--- NOTE | 2021-11-07 22:00 | NUR ---
RECEIVED DISCHARGE ORDER IN [facility]. CALLED OUT TO DR. ALEJANDRO FOR FURTHER ORDERS. PATIENT IS TOO BE DISCHARGED IN AM.
--- NOTE | 2021-11-07 22:29 | NUR ---
REPORT GIVEN TO RN FOR ASSIGNMENT CHANGE.
[2021-11-08] VITALS: BP 108/59
[2021-11-08 04:00] VITALS: BP 121/46
[2021-11-08] MEDS: ACETAMINOPHEN 325 MG TABLET PO PRN (05:37)
[2021-11-08] MEDS: LEVOTHYROXINE SODIUM 100 MCG TABLET PO SCH (06:05)
[2021-11-08] MEDS ORDERED: CEFT1FRO2 IV (06:26)
[2021-11-08] MEDS: DIVALPROEX 125 MG TABLET.DR PO SCH (08:07)
[2021-11-08] MEDS: MULTIVIT, IRON, MIN NO. 8, FA TABLET PO SCH (08:07)
[2021-11-08] MEDS: SENNOSIDES 1 TABLET PO SCH (08:07)
[2021-11-08] MEDS: DULOXETINE 30 MG CAPSULE.DR PO SCH (08:07)
[2021-11-08] MEDS: CYANOCOBALAMIN 1,000 MCG TABLET PO SCH (08:07)
[2021-11-08] MEDS: POTASSIUM CHLORIDE 20 MEQ TAB.PRT.SR PO SCH (08:07)
[2021-11-08] MEDS: CALCITONIN,SALMON,SYNTHETIC 3.7 ML SPRAY.PUMP NS SCH (09:20)
[2021-11-08] MEDS: CEFTRIAXONE 1 G in IV DEXTROSE 5% 50 ML IV SCH (10:09)
[2021-11-08] MEDS: ACETAzolamide SODIUM 500 MG VIAL IV SCH (11:30)
[2021-11-08 11:53] VITALS: BP 125/57
[2021-11-08 15:30] VITALS: BP 102/73
--- NOTE | 2021-11-08 15:39 | NUR ---
dc orders received noted and carried out.dc instruction and rn report given to jail rn edelmira gong left the facility via ambulances with f/c and midline in stable condition
== END 2021-11-08 15:40 | DRG 177 ==
LOC: ER 20:16 → TELE3 23:03 → MEDSURG3 10-31 14:25 → TELE3 11-04 11:20
PROVIDERS: ADMIT Internal Medicine; ATTEND Internal Medicine
PROC: 05HC33Z Insertion of Infusion Device into Left Basilic Vein, Percutaneous Approach (ICD-10-PCS; principal; 2021-10-29)
DX: J69.0 Pneumonitis due to inhalation of food and vomit (principal); N17.0 Acute kidney failure with tubular necrosis; N39.0 Urinary tract infection, site not specified; E87.0 Hyperosmolality and hypernatremia; I50.32 Chronic diastolic (congestive) heart failure; I69.354 Hemiplegia and hemiparesis following cerebral infarction affecting left non-dominant side; E87.2 Acidosis; E86.0 Dehydration; Z20.822 Contact with and (suspected) exposure to COVID-19; I44.7 Left bundle-branch block, unspecified; J44.9 Chronic obstructive pulmonary disease, unspecified; R00.0 Tachycardia, unspecified; B96.1 Klebsiella pneumoniae [K. pneumoniae] as the cause of diseases classified elsewhere; I11.0 Hypertensive heart disease with heart failure; R76.11 Nonspecific reaction to tuberculin skin test without active tuberculosis; I70.0 Atherosclerosis of aorta; F03.90 Unspecified dementia, unspecified severity, without behavioral disturbance, psychotic disturbance, mood disturbance, and anxiety; E03.9 Hypothyroidism, unspecified; Z87.01 Personal history of pneumonia (recurrent); R13.10 Dysphagia, unspecified; Z79.890 Hormone replacement therapy
CPT/HCPCS: 36415; 36600; 71045; 83605; 83735; 84100; 84484; 85025; 85730; 86803; 87040; 87070; 87077; 87086; 87400; 87806; 93005; 93307; A4663; C1758; G0378; J0692; J0696; J1120; J2543; J3370; J3490; J7060; U0003